=== PATIENT | male | born 2000 ===

== ENCOUNTER 2024-03-06 11:04 | Emergency (ER) | payer BC ==
[2024-03-06] MEDS: Loperamide 2 MG Cap PO ONE (11:35)
[2024-03-06] MEDS: Sodium Chloride 0.9% 1,000 ML IV ONE (11:35)
[2024-03-06] MEDS: Sodium Chloride 0.9% 2.5 ML Syringe FLUSH PRN (11:36)
[2024-03-06] MEDS: Sodium Chloride 0.9% 10 ML Syringe FLUSH PRN (11:36)
[2024-03-06] MEDS: Famotidine 20 MG/2 ML SDV IVPUSH ONE (11:36)
[2024-03-06 11:44] LABS: HEMATOCRIT 50.6 % (42.0-52.0); HEMOGLOBIN 17.6 g/dL (14.0-18.0); MEAN CORPUSCULAR HEMOGLOBIN 29.7 pg (28.0-32.0); MEAN CORPUSCULAR HGB CONC 34.8 g/dL (32.0-36.0); MEAN CORPUSCULAR VOLUME 85.5 fL (83.0-99.0); MEAN PLATELET VOLUME 10.4 fL (9.4-12.4); PLATELET COUNT,PLT 176 K/uL (150-400); RED BLOOD CELL COUNT 5.92 M/uL (4.52-5.90); WHITE BLOOD CELL COUNT,WBC 4.76 K/uL (3.9-11.3)
[2024-03-06 11:56] LABS: SEG NEUTROPHILS PERCENT MAN 42 % (41-71)
[2024-03-06 11:57] LABS: BAND ABSOLUTE MAN 0.19; BAND PERCENT MAN 4 %; EOSINOPHILS ABSOLUTE MAN 0.86 K/uL (0.00-0.45); EOSINOPHILS PERCENT MAN 18 % (0-6); LYMPHOCYTES ABSOLUTE MAN 1.29 K/uL (1.00-4.80); LYMPHOCYTES PERCENT MAN 27 % (24-44); MONOCYTES ABSOLUTE MAN 0.43 K/uL (0.00-0.80); MONOCYTES PERCENT MAN 9 % (0-8)
[2024-03-06 12:13] VITALS: PULSE 77
[2024-03-06 12:22] LABS: A/G RATIO 0.9 (0.9-1.6); ALBUMIN 3.4 g/dL (3.4-5.0); BILIRUBIN TOTAL 0.5 mg/dL (0.2-1.0); CALCIUM 8.6 mg/dL (8.5-10.1); CARBON DIOXIDE,CO2 30.2 mmol/L (21.0-32.0); CREATININE 1.6 mg/dL (0.8-1.3); EST CRCL DRUG DOSING (CG) 77.47 mL/min; MAGNESIUM 2.1 mg/dL (1.8-2.4); POTASSIUM,K 4.1 mmol/L (3.5-5.1); PROTEIN TOTAL,TP 7.2 g/dL (6.4-8.2); TSH ULTRASENSITIVE 1.4 uIU/mL (0.36-3.74)
[2024-03-06 13:37] VITALS: BP 136/60
== END 2024-03-06 13:43 | disposition home or self-care (01) ==
LOC: MW.ED 11:04
DX: R19.7 Diarrhea, unspecified (principal); Z79.899 Other long term (current) drug therapy; Z75.8 Other problems related to medical facilities and other health care
CPT/HCPCS: 36415; 80053; 82550; 83690; 83735; 84443; 85025; 96361; 96374; 99284; A9270; J3490; J7030